=== PATIENT | male | born 1985 | race Two or more races ===

== ENCOUNTER 2022-01-18 21:36 | Emergency (ER) | payer OTHER ==
[~2022-01-18] VITALS: Ht 167.6 cm; Wt 70.3 kg
[2022-01-18 21:58] VITALS: BP 137/78
--- NOTE | 2022-01-18 22:14 | NUR ---
COVID SWAB DONE AND SENT TO LAB
== END 2022-01-18 23:27 | disposition home or self-care (01) ==
LOC: ER 21:37
DX: Z02.89 Encounter for other administrative examinations (principal); Z20.822 Contact with and (suspected) exposure to COVID-19
CPT/HCPCS: 99283; 87426; C9803